=== PATIENT | female | born 1955 | race Caucasian/White ===

== ENCOUNTER 2017-05-22 13:28 | Emergency (ER) | payer BC ==
[~2017-05-22] VITALS: Ht 160 cm; Wt 80.0 kg
[~2017-05-22 13:28] MED LIST: HYDR-3533 PO; IBUP800T23 PO; LISI-363 PO; [UNRECOGNIZED DRUG - CODE]; depression med
[2017-05-22 13:43] VITALS: BP 175/77; PULSE 92; RESP 16; TEMP 98; O2SAT 98
[2017-05-22] MEDS ORDERED: [UNRECOGNIZED DRUG - CODE] (14:26)
[2017-05-22] MEDS ORDERED: LISI-515 PO (14:26)
[2017-05-22] MEDS ORDERED: DEPRESSION PILL (14:27)
[2017-05-22] MEDS ORDERED: MORPHINE SULFATE 2 MG/ML INJ IV PUSH ONE ×2 (14:45)
--- NOTE | 2017-05-22 15:05 | RADRPT ---
EXAM DATE/TIME: 05/22/2017 14:49 [facility] COMPARISON: No previous studies available for comparison. INDICATIONS : Right ankle pain with severe swelling encircling the extremity after a fall from a ladder. Patient beau so has a deep puncture wound to the medial side of heel. MEDICAL HISTORY : Hypertension. Chronic obstructive pulmonary disease. SURGICAL HISTORY : Tonsillectomy. Hysterectomy. ENCOUNTER: Initial ACUITY: 1 day PAIN SCORE: 10/10 LOCATION: Right ankle FINDINGS: There is diffuse prominent soft tissue swelling around the entire ankle. The alignment of the mortise joint. On the lateral view there appears to be a fracture through the mid body of the calcaneus. The re appears to be a small avulsion fracture off the posterior talus. There is a small heel spur on the plantar surface of the calcaneus.. The distal tibia and fibula are grossly intact. CONCLUSION: 1. Prominent diffuse soft tissue swelling the ankle. 2. There is a fracture through the body of the calcaneus. 3. Small avulsion fracture of the posterior talus. Job Schwartz MD on May 22, 2017 at 15:00 Board Certified Radiologist. This report was verified electronically.
[2017-05-22 15:16] VITALS: BP 192/88; PULSE 98; RESP 18; O2SAT 96
[2017-05-22] MEDS ORDERED: TETANUS/DIPHTHERIA TOXOID ADULT 0.5 ML VIAL IM ONE (15:30)
[2017-05-22 15:43] LABS: AUTOMATED NEUTROPHIL # 13.4 TH/MM3 (1.8-7.7); BASOPHIL # 0.1 TH/MM3 (0-0.2); BASOPHIL % 0.8 % (0.0-2.0); EOSINOPHIL # 0.2 TH/MM3 (0-0.4); HEMATOCRIT 39.9 % (35.0-46.0); HEMOGLOBIN 13.3 GM/DL (11.6-15.3); LYMPH % 15.1 % (9.0-44.0); LYMPHOCYTE # 2.6 TH/MM3 (1.0-4.8); MEAN CELL VOLUME 82.1 FL (80.0-100.0); MEAN CORPUSCULAR HEMOGLOBIN 27.3 PG (27.0-34.0); MEAN CORPUSCULAR HGB CONC 33.2 % (32.0-36.0); MEAN PLATELET VOLUME 7.9 FL (7.0-11.0); MONO % 5.2 % (0.0-8.0); MONOCYTE # 0.9 TH/MM3 (0-0.9); NEUT % 77.9 % (16.0-70.0); PLATELET COUNT 427 TH/MM3 (150-450); RED BLOOD COUNT 4.86 MIL/MM3 (4.00-5.30); RED CELL DISTRIBUTION WIDTH 13.5 % (11.6-17.2); WHITE BLOOD COUNT 17.2 TH/MM3 (4.0-11.0)
[2017-05-22 15:50] LABS: CHLORIDE 98 MEQ/L (98-107); SODIUM (NA) 136 MEQ/L (136-145)
[2017-05-22 15:54] LABS: ALBUMIN 3.8 GM/DL (3.4-5.0); BICARBONATE 29.7 MEQ/L (21.0-32.0); BLOOD UREA NITROGEN 21 MG/DL (7-18); GLUCOSE,RANDOM 108 MG/DL (74-106)
[2017-05-22 15:57] LABS: ALT (GPT) 29 U/L (10-53); AST (GOT) 23 U/L (15-37); CREATININE 0.89 MG/DL (0.50-1.00); GLOMERULAR FILTRATION RATE 64 ML/MIN (>89)
[2017-05-22 15:59] LABS: CALCIUM 9.9 MG/DL (8.5-10.1); TOTAL BILIRUBIN ADULT 0.3 MG/DL (0.2-1.0); TOTAL PROTEIN 8.2 GM/DL (6.4-8.2)
[2017-05-22 16:00] LABS: ALKALINE PHOSPHATASE 83 U/L (45-117)
[2017-05-22] MEDS ORDERED: LIDOCAINE 1%/EPINEPHrine 1:100,000 SOLN 20 ML VIAL INFIL ONE (16:00)
--- NOTE | 2017-05-22 16:00 | RADRPT ---
EXAM DATE/TIME: 05/22/2017 15:22 [facility] COMPARISON: No previous studies available for comparison. INDICATIONS : Right knee pain after fall off of ladder. MEDICAL HISTORY : None. SURGICAL HISTORY : Hysterectomy. ENCOUNTER: Initial ACUITY: 1 day PAIN SCORE: 5/10 LOCATION: Right knee. FINDINGS: Four view examination of the right knee demonstrates no evidence of fracture or dislocation. Bony mi neralization is normal. The articular surfaces are intact. The suprapatellar soft tissues have a no rmal configuration. CONCLUSION: 1. No acute fracture or dislocation. Sergio Khalil MD on May 22, 2017 at 15:58 Board Certified Radiologist. This report was verified electronically.
--- NOTE | 2017-05-22 16:01 | RADRPT ---
EXAM DATE/TIME: 05/22/2017 15:22 [facility] COMPARISON: No previous studies available for comparison. INDICATIONS : Right femur pain after fall off of a ladder. MEDICAL HISTORY : None. SURGICAL HISTORY : Hysterectomy. ENCOUNTER: Initial ACUITY: 1 day PAIN SCORE: 5/10 LOCATION: Right femur. FINDINGS: Two view examination of the right femur demonstrates no evidence of fracture or dislocation. Bony mi neralization is normal. The soft tissue structures are intact. CONCLUSION: 1. No acute fracture or dislocation. Sergio Khalil MD on May 22, 2017 at 15:58 Board Certified Radiologist. This report was verified electronically.
[2017-05-22] MEDS ORDERED: LIDOCAINE 2%/EPINEPHrine 1:100,000 20ML MDV INFIL ONE (16:30)
[2017-05-22] MEDS ORDERED: PERC5TAB12 PO (17:16)
--- NOTE | 2017-05-22 17:16 | PD ---
HPI Chief Complaint: Injury Time Seen by Provider: 14:36 Travel History International Travel<30 days: No Contact w/Intl Traveler<30days: No Traveled to known affect area: No History of Present Illness HPI Patient is a 61-year-old female who comes in after she fell off of a ladder. She says she was about 4 feet off the ground and she fell onto her right foot. She says she then fell onto her right side. She denies hitting her head or losing consciousness. She says she knocked a picture frame off the long she thinks that hit her on the right ankle. She denies pain to her right arm or her hip. She denies any other injuries. She does not know when her last tetanus vaccine was. She was unable to walk after the accident. She has not taken anything for pain. [facility] Past Medical History Depression: Yes Cardiovascular Problems: Yes (htn on meds) Diminished Hearing: No Hypertension: Yes Respiratory: Yes (copd) Tetanus Vaccination: Unknown ?: Not Menopausal: Yes Past Surgical History Hysterectomy: Yes Tonsillectomy: Yes Social History Alcohol Use: No Tobacco Use: No Substance Use: No Allergies-Medications (Allergen,Severity, Reaction): Coded Allergies: No Known Allergies (Unverified Adverse Reaction, Unknown, 05/22/17) Reported Meds & Prescriptions Reported Meds & Active Scripts Active Reported [Depression Pill] [Hrt Support] Lisinopril 20 Mg Tab 20 Mg PO BID Review of Systems Except as stated in HPI: all other systems reviewed are Neg General / Constitutional: No: Fever, Chills HENT: No: Headaches, Lightheadedness Cardiovascular: No: Chest Pain or Discomfort Respiratory: No: Shortness of Breath Gastrointestinal: No: Nausea, Vomiting Musculoskeletal: Positive: Edema, Pain Skin: Positive Other (laceration) Neurologic: No: Weakness, Dizziness Physical Exam Narrative GENERAL: Awake and alert, in no acute distress. SKIN: 2 cm oozing wound to the right medial ankle. HEAD: Atraumatic. Normocephalic. EYES: Pupils equal and round. No scleral icterus. ENT: Mucous membranes pink and moist. NECK: Trachea midline. No JVD. No cervical spine tenderness. CARDIOVASCULAR: Regular rate and rhythm. No murmur appreciated. RESPIRATORY: No accessory muscle use. Clear to auscultation. Breath sounds equal bilaterally. GASTROINTESTINAL: Abdomen soft, non-tender, nondistended. MUSCULOSKELETAL: Large swelling of the right ankle. Tender to palpation to the medial side of the ankle as well as the foot. Pedal pulses are intact. No tenderness to the right arm or the right hip. NEUROLOGICAL: Awake and alert. No obvious cranial nerve deficits. Motor grossly within normal limits. Normal speech. PSYCHIATRIC: Appropriate mood and affect; insight and judgment normal. Data Data Last Documented VS Vital Signs Date Time Temp Pulse Resp B/P (MAP) Pulse Ox O2 Delivery O2 Flow Rate FiO2 05/22/17 15:18 Room Air 05/22/17 15:16 98 18 192/88 (122) 96 05/22/17 13:43 98.0 Orders Orders Iv Access Insert/Monitor (05/22/17 14:41) Complete Blood Count With Diff (05/22/17 14:41) Comprehensive Metabolic Panel (05/22/17 14:41) Ankle, Complete ([id number]) (05/22/17 ) Morphine Inj (Morphine Inj) (05/22/17 14:45) Morphine Inj (Morphine Inj) (05/22/17 14:45) Knee, Complete (4vws) (05/22/17 ) Femur (Ap & Lat/2vws) (05/22/17 ) Tetanus/Diphtheria Tox Adult (Tetanus/Di (05/22/17 15:30) Spine, Lumbar - Ltd (Ap & Lat) (05/22/17 ) Lidocai-Epi 1%-1:100,000 Inj (Xylocaine- (05/22/17 16:00) Lidocai-Epi 2%-1:100,000 Inj (Xylocaine- (05/22/17 16:30) Splint Or Brace Apply/Monitor (05/22/17 16:43) Crutches (05/22/17 16:43) Labs Laboratory Tests Test 05/22/17 15:00 White Blood Count 17.2 TH/MM3 Red Blood Count 4.86 MIL/MM3 Hemoglobin 13.3 GM/DL Hematocrit 39.9 % Mean Corpuscular Volume 82.1 FL Mean Corpuscular Hemoglobin 27.3 PG Mean Corpuscular Hemoglobin Concent 33.2 % Red Cell Distribution Width 13.5 % Platelet Count 427 TH/MM3 Mean Platelet Volume 7.9 FL Neutrophils (%) (Auto) 77.9 % Lymphocytes (%) (Auto) 15.1 % Monocytes (%) (Auto) 5.2 % Eosinophils (%) (Auto) 1.0 % Basophils (%) (Auto) 0.8 % Neutrophils # (Auto) 13.4 TH/MM3 Lymphocytes # (Auto) 2.6 TH/MM3 Monocytes # (Auto) 0.9 TH/MM3 Eosinophils # (Auto) 0.2 TH/MM3 Basophils # (Auto) 0.1 TH/MM3 CBC Comment DIFF FINAL Differential Comment Blood Urea Nitrogen 21 MG/DL Creatinine 0.89 MG/DL Random Glucose 108 MG/DL Total Protein 8.2 GM/DL Albumin 3.8 GM/DL Calcium Level 9.9 MG/DL Alkaline Phosphatase 83 U/L Aspartate Amino Transf (AST/SGOT) 23 U/L Alanine Aminotransferase (ALT/SGPT) 29 U/L Total Bilirubin 0.3 MG/DL Sodium Level 136 MEQ/L Potassium Level 3.2 MEQ/L Chloride Level 98 MEQ/L Carbon Dioxide Level 29.7 MEQ/L Anion Gap 8 MEQ/L Estimat Glomerular Filtration Rate 64 ML/MIN MDM Medical Decision Making Medical Screen Exam Complete: Yes Emergency Medical Condition: Yes Differential Diagnosis Ankle fracture versus foot fracture versus dislocation Narrative Course Patient is a 61-year-old female comes in after she fell off of a ladder. Exam shows large swelling of the right ankle with a small laceration to the medial malleolus. X-ray of the ankle obtained shows a calcaneal fracture. The laceration is due to being hit by a picture frame. Extremities the rest the leg and the lumbar spine show no acute findings. Laceration repaired with 2 sutures. Patient placed in a splint. I spoke with Dr. Berger of podiatry who suggests splinting and following up in the office. She is advised follow-up with podiatry. Told to not place any weight on her right foot. She was given pain medicine. The prescription for pain medicine. Advised to return any time for any worsening symptoms. Last 24 hours Impressions Knee X-Ray 05/22/17 0000 Signed Impressions: Service Date/Time: Monday, May 22, 2017 15:22 - CONCLUSION: 1. No acute fracture or dislocation. Sergio Khalil MD Femur X-Ray 05/22/17 0000 Signed Impressions: Service Date/Time: Monday, May 22, 2017 15:22 - CONCLUSION: 1. No acute fracture or dislocation. Sergio Khalil MD Ankle X-Ray 05/22/17 0000 Signed Impressions: Service Date/Time: Monday, May 22, 2017 14:49 - CONCLUSION: 1. Prominent diffuse soft tissue swelling the ankle. 2. There is a fracture through the body of the calcaneus. 3. Small avulsion fracture of the posterior talus. Job Schwartz MD Procedures Procedure Narrative LACERATION LOCATION: Right medial malleolus LENGTH: 2 cm NUMBER OF STITCHES/SUSHMA: 2 REPAIR: The area of the laceration was prepped with Betadine and sterilely draped. The laceration was infiltrated with 2% lidocaine with epi. The wound was copiously irrigated and explored without evidence of foreign body, tendon injury or neurovascular injury. The wound was closed using 4-0 Prolene. This was a single layer repair. A sterile dressing was applied. The patient was advised to keep the dressing clean and dry. Patient tolerated the procedure well. Diagnosis Primary Impression: Calcaneal fracture Qualified Codes: S92.014A - Nondisplaced fracture of body of right calcaneus, initial encounter for closed fracture Additional Impression: Talus fracture Qualified Codes: S92.154A - Nondisplaced avulsion fracture (chip fracture) of right talus, initial encounter for closed fracture Referrals: Mason Berger DPM call for appointment Patient Instructions: Calcaneal Fracture (ED), General Instructions Additional Instructions: Take pain medicine as needed. Do not get your splint wet. Do not put any weight on her right foot. Follow-up with podiatry. Return to the ED as needed for any worsening symptoms. Scripts Oxycodone-Acetaminophen (Percocet) 5-325 mg Tab 1 TAB PO Q6H Y for PAIN, #15 TAB 0 Refills Prov: Audra Montes MD 05/22/17 Audra Montes MD May 22, 2017 17:16
--- NOTE | 2017-05-22 18:06 | RADRPT ---
EXAM DATE/TIME: 05/22/2017 15:22 [facility] COMPARISON: No previous studies available for comparison. INDICATIONS : Lower back pain after fall off of a ladder. MEDICAL HISTORY : None. SURGICAL HISTORY : Hysterectomy. ENCOUNTER: Initial ACUITY: 1 day PAIN SCORE: 7/10 LOCATION: Bilateral lower back. FINDINGS: Two view examination was performed. There are five non-rib bearing vertebral bodies. The vertebral bodies are in normal alignment without evidence of subluxation or scoliosis. The disc spaces are garry ntained. The pedicles are intact. Moderate bilateral facet arthropathy is identified at L4-5 and L5- S1. There is joint space narrowing with subchondral sclerosis. Bony mineralization is normal. No fr acture is identified. CONCLUSION: 1. Lower lumbar facet arthropathy. 2. No evidence of acute fracture or traumatic listhesis. Brendon Miranda MD on May 22, 2017 at 16:04 Board Certified Radiologist. This report was verified electronically.
== END 2017-05-22 18:35 | disposition home or self-care (01) ==
LOC: PHEFT 13:28 → PHED 18:35
DX: S92.014A Nondisplaced fracture of body of right calcaneus, initial encounter for closed fracture (principal); S92.154A Nondisplaced avulsion fracture (chip fracture) of right talus, initial encounter for closed fracture; S91.011A Laceration without foreign body, right ankle, initial encounter; F32.9 Major depressive disorder, single episode, unspecified; I10 Essential (primary) hypertension; J44.9 Chronic obstructive pulmonary disease, unspecified; W11.XXXA Fall on and from ladder, initial encounter; Z23 Encounter for immunization
CPT/HCPCS: 12001; 29515; 72100; 73552; 73564; 73610; 80053; 85025; 90471; 90714; 96374; 96375; 99284; E0113; J2270